=== PATIENT | male | born 1985 | race Caucasian/White ===

== ENCOUNTER 2017-06-02 13:10 | Emergency (ER) | payer MEDICAID ==
[2017-06-02 15:15] VITALS: BP 154/74
--- NOTE | 2017-06-02 16:13 | UC ---
Skin Complaint HPI - HPI Summary HPI Summary: Patient to urgent care [facility] requesting a refill of his desonide. Patient last had a desonide prescription at the pharmacy 2015 he states he Had filled after that, he was incarcerated. Patient states he uses it every day or every other day for what he believes to be psoriasis on his face. Extensive education done for patient about using other medications including Elocon. Patient states he does not overuse a desonide that was approved by Dr. Sen and he wanted a small prescription get him through until he could follow up with Dr. Sen in the next month. - History of Current Complaint Chief Complaint: UCSkin Time Seen by Provider: 06/02/17 15:37 Stated Complaint: SKIN COMPLAINT Hx Obtained From: Patient Timing: Constant Current Severity: None Pain Intensity: 0 Pain Scale Used: 0-10 Numeric Location: Discrete - On his face Character: Redness Aggravating Factor(s): Nothing Alleviating Factor(s): Nothing Associated Signs & Symptoms: Positive: Negative - Allergy/Home Medications Allergies/Adverse Reactions: Allergies Allergy/AdvReac Type Severity Reaction Status Date / Time animal dander Allergy Eyes Uncoded 06/02/17 15:10 Itchy/Swollen/Red/Watery Review of Systems Constitutional: Negative Skin: Other - Erythema and Malagon in the long hairline Eyes: Negative ENT: Negative Respiratory: Negative Cardiovascular: Negative Gastrointestinal: Negative Genitourinary: Negative Motor: Negative Neurovascular: Negative Musculoskeletal: Negative Neurological: Negative Psychological: Negative Is Patient Immunocompromised?: No All Other Systems Reviewed And Are Negative: Yes PMH/Surg Hx/FS Hx/Imm Hx Previously Healthy: Yes - Surgical History Surgical History: Yes Surgery Procedure, Year, and Place: 2004 glass in right forearm - Family History Known Family History: Positive: Unknown - Social History Occupation: Unemployed Lives: Alone Alcohol Use: None Substance Use Type: Other Smoking Status (MU): Heavy Every Day Tobacco Smoker Type: Cigarettes Amount Used/How Often: 1/2 ppd Length of Time of Smoking/Using Tobacco: 9 years Have You Smoked in the Last Year: Yes Physical Exam Triage Information Reviewed: Yes Appearance: Well-Appearing, No Pain Distress, Well-Nourished Vital Signs: Initial Vital Signs Temp 98.8 F 06/02/17 15:11 Pulse 111 06/02/17 15:11 Resp 18 06/02/17 15:11 BP 154/74 06/02/17 15:11 Pulse Ox 97 06/02/17 15:11 Vital Signs Reviewed: Yes Eye Exam: Normal Eyes: Positive: Conjunctiva Clear ENT Exam: Normal ENT: Positive: Normal ENT inspection, Hearing grossly normal. Negative: Trismus , Muffled voice, Hoarse voice Dental Exam: Normal Neck exam: Normal Neck: Positive: Supple, Nontender Respiratory Exam: Normal Respiratory: Positive: Chest non-tender, No respiratory distress, No accessory muscle use Cardiovascular Exam: Normal Cardiovascular: Positive: RRR, Pulses Normal, Brisk Capillary Refill Musculoskeletal Exam: Normal Musculoskeletal: Positive: Strength Intact, ROM Intact, No Edema Neurological Exam: Normal Neurological: Positive: Alert, Muscle Tone Normal Psychological Exam: Normal Skin Exam: Normal Skin: Positive: rashes - Some red rash in his malagon and along his hip hairline mostly on the right side of his face Course/Dx - Course Course Of Treatment: Smallest to the desonide prescribed patient advised to use it extremely sparingly for the next month until he sees Dr. Sen, alternates also discussed with patient including using an oil-based skip motion, cool showers only and only washing every other day at the most - Diagnoses Provider Diagnoses: Atopic dermatitis, nicotine dependent, elevated blood pressure without diagnosis of hypertension Discharge - Sign-Out/Discharge Documenting (check all that apply): Discharge - Discharge Plan Condition: Stable Disposition: HOME Prescriptions: Desonide 0.005% OINT(NF) 0.05 % EX DAILY #15 gm Patient Education Materials: Eczema (ED), Hypertension (ED) Referrals: [facility] [Outside] (next1-3 weeks) [place] PERSON,Simon Villagomez [Medical Doctor] - As Soon As Possible - Billing Disposition and Condition Condition: STABLE Disposition: HOME
== END 2017-06-02 16:20 | disposition home or self-care (01) ==
LOC: UCCORT 13:10
DX: L20.9 Atopic dermatitis, unspecified (principal); R03.0 Elevated blood-pressure reading, without diagnosis of hypertension; F17.210 Nicotine dependence, cigarettes, uncomplicated
CPT/HCPCS: 99202; G0463